=== PATIENT | female | born 1975 | race Two or more races ===

== ENCOUNTER 2023-02-17 09:25 | Outpatient (AMB) | payer MEDICARE, MEDICAID, SELFPAY ==
--- NOTE | 2023-02-17 09:28 | A.OFFVIS_ITS ---
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 Accompanied by: Self / Same As Patient Allergies Sulfa (Sulfonamide Antibiotics) Allergy (Unknown, Verified 02/17/23 09:33) Unknown Medication List - Last Reconciled 02/17/23 by Shaye Perrin RN ciclopirox 0.77% 1 appl topical BID docusate sodium (Colace) 100 mg PO BID ergocalciferol (vitamin D2) 50,000 units PO .weekly ferrous sulfate 325 mg PO DAILY ibuprofen 800 mg PO BID lorazepam (Ativan) 1 mg PO BID omeprazole 20 mg PO DAILY tramadol 50 mg PO BID PRN zinc gluconate 30 mg PO DAILY zolpidem ER 12.5 mg PO BEDTIME PRN HPI HPI Comments History of Present Illness Details Patient presents for evaluation of multiple joint pains. She says she has been treated for fibromyalgia for the last 6-10 years. She was on regular doses of tramadol, 50 b.i.d. from her primary doctor. He apparently left practice and she is searching for a doctor to continue that regimen. The primary provider she had seen at [place] told that her that he did not have the license to prescribe that medication. Patient complains of lower back pain more on the left. This tends to radiate to the left buttock and down to the thigh. It has been worse in the last 6-12 months. It is worse with more physical activity. It also occasionally bothers her at night. She has had at gastric surgery for obesity but still takes ibuprofen once or twice a day if needed. She often takes it with the tramadol. She did not find Tylenol all that effective. She has a history of iron deficiency anemia, currently on ferrous sulfate daily. She also takes omeprazole for heartburn and Ambien for sleep at night if needed. She has tried Lyrica but it made her gain weight. Gabapentin seem to make her nauseated. She had been on antidepressants in the past but not recently. She tried cyclobenzaprine and that did not help. She had some injections in the back years ago that were not all that helpful. She has not seen the Pain Management people recently. She said she felt they treated her like a drug addict. [facility] Medical History (Updated 02/17/23 @ 10:15 by Ortiz Schofield MD) Allergic rhinitis Anxiety Bipolar 1 disorder Chronic back pain Depression GERD (gastroesophageal reflux disease) Insomnia Intestinal malabsorption following gastrectomy Obesity (BMI 30-39.9) Vitamin B12 deficiency Surgical History H/O reduction mammoplasty History of abdominoplasty History of cholecystectomy History of sleeve gastrectomy Hx of appendectomy Family History (Updated 02/17/23 @ 09:41 by Shaye Perrin RN) Mother Diabetes Hypertension Kidney stones Chronic pain Maternal Grandmother Diabetes Hypertension Social History (Updated 02/17/23 @ 09:41 by Shaye Perrin RN) Household Members: Children Alcohol intake: never Patient Tobacco Use Status: Never used Tobacco Review of Systems Const Details: Low energy. Some weight loss with the gastric surgery but some of that has returned. Negative for appetite change, fever, chills, malaise Eyes Details: Occasional headache. Negative for vision change, dry eyes, and dizziness ENT Details: Some oral dryness. Negative for hearing change, tinnitus, oral ulcer, nose bleeds Card Details: Occasional ankle swelling. Negative chest pain, palpitations and syncope Resp Details: Negative for SOB, cough and wheezing GI Details: Negative indigestion/heartburn, nausea, abdominal pain, bowel changes, diarrhea, constipation and bloody stool. Details: Negative for dysuria, hematuria, nocturia, decreased force/flow and genital discharge Skin/Breast Details: Negative for itching, rash, hives, Raynaud's symptoms, sun sensitivity, and skin cancer Neuro Details: Negative for epilepsy, palsy, stroke, changes in speech, tingling and weakness Psych Details: History of anxiety and depression in the past but denies significant depression currently. The Endo Details: Negative for polyuria and polydypsia Jeremiah/Lymph Details: Negative for excessive bruising or bleeding. Physical Exam Vital Signs: Last Vital Signs Temp 97.6 F 02/17/23 09:29 Pulse 102 H 02/17/23 09:29 Resp 16 02/17/23 09:29 BP 110/72 02/17/23 09:29 Pulse Ox 99 02/17/23 09:29 Oxygen Delivery Method Room Air 02/17/23 09:29 BMI result Body Mass Index 33.3 APPEARANCE: Patient in no acute distress EYES no redness, pupils equal and reactive to light, eyelids normal EARS: External ear normal, canal clear and tympanic membrane normal. NOSE/SINUS: Airflow through both nares, no nasal discharge, no bleeding THROAT: Oral mucosa moist, no ulcerations NECK: No thyromegaly or masses, no adenopathy, trachea midline. HEART: Regulrar rhythm, S1-S2 heard, no murmurs, rubs or gallops. LUNG: Clear to percussion and auscultation ABD: Normal bowel sounds, no organomegaly, masses or tenderness. EXTREMITIES: No edema, no calf tenderness, normal peripheral pulses. NEURO: Oriented and alert x3. No focal weakness. Reflexes symmetric. Gait normal. SKIN: No inflammatory or neoplastic lesions. Normal color and turgor JOINT EXAM:.?? Cervical Spine:.? Full range of motion without pain; mild cervical muscle tenderness. Thoracic Spine:.? No scoliosis.? No tenderness on palpation. Lumbar Spine:.? Alignment normal.? Full range of motion without pain, no tenderness. Chest Wall:.? No tenderness, swelling, increased warmth or erythema. Hands:.? Normal pain-free range of motion without tenderness, swelling, increased warmth or erythema. 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 Wrists:.? Normal pain-free range of motion without tenderness, swelling, increased warmth or erythema. Elbows:. Normal pain-free range of motion without tenderness, swelling, increased warmth or erythema. Shoulders:.?? Full range of motion with mild discomfort at the extremes of motion. There is some trapezial muscle tenderness but no abductor weakness, adenopathy, weakness, swelling, increased warmth or erythema. Hips:.? Full range of motion that causes lumbar pain. This is more prominent on the left. No tenderness. Hip bursa:.? Mild trochanteric tenderness. Knees:.?? Normal pain-free range of motion without tenderness, swelling, increased warmth or erythema.? There is no effusion or crepitation Ankles:.? Normal pain-free range of motion without tenderness, swelling, increased warmth or erythema. Feet:.? Normal pain-free range of motion without tenderness, swelling, increased warmth or erythema. Tender points:.? mild tenderness to digital palpation at the trapezius, , knees, greater trochanter area bilaterally. ? Assessment & Plan Assessment & Plan (1) Iron deficiency anemia: Code(s): D50.9 - Iron deficiency anemia, unspecified (2) History of sleeve gastrectomy: Code(s): Z90.3 - Acquired absence of stomach [part of] (3) Fibromyalgia: Code(s): M79.7 - Fibromyalgia (4) Low back pain: Code(s): M54.50 - Low back pain, unspecified Plan Patient has a longstanding history of many areas of pain. It seems recently, in the last 6-12 months it has been worse for her with the back pain radiating down the left leg. This would suggest lumbar degenerative disease and secondary sciatica. She may have fibromyalgia but I think is clearly the back pain that is limiting her at this point. Further treatment of her iron deficiency may also improve some of her musculoskeletal symptoms. I told her I would not be prescribing her tramadol. Tramadol and such opioids in the setting of chronic pain and fibromyalgia are not all that helpful. Low-dose nighttime use if needed could be instituted and monitored by her primary doctor. Additionally a restart of her antidepressant may also be helpful in helping her cope with the pain. I do not think she needs rheumatology follow-up at this point. I will commence workup of the back pain with LS spine films, sed rate and CRP. I suggested she could follow through with a new pain management team and I referred her to the office here at [place]. Orders: Orders XR lumbar spine 2-3V Today M54.50 - Low back pain, unspecified C Reactive Protein Today M54.50 - Low back pain, unspecified, M79.7 - Fibromyalgia Erythrocyte Sedimentation Rate Today M54.50 - Low back pain, unspecified, M79.7 - Fibromyalgia Referrals Pain Management Referral M54.50 - Low back pain, unspecified Coding Level of Care Code New Pt Level 3 (31177) Diagnoses Iron deficiency anemia D50.9 History of sleeve gastrectomy Z90.3 Fibromyalgia M79.7 Low back pain M54.50
[2023-02-17 09:29] VITALS: BP 110/72; PULSE 102; RESP 16; TEMP 36.4; O2SAT 99; BMI 33.3
== END 2023-02-17 10:29 | disposition home or self-care (01) ==
PROVIDERS: PCP Internal Medicine; Visit Provider Internal Medicine Rheumatology
DX: D50.9 Iron deficiency anemia, unspecified (principal); Z90.3 Acquired absence of stomach [part of]; M79.7 Fibromyalgia; M54.50 Low back pain, unspecified
CPT/HCPCS: 99203

== ENCOUNTER 2023-02-17 09:28 | Outpatient (REF) | payer MEDICARE, MEDICAID, SELFPAY ==
--- NOTE | ~2023-02-17 | XR_ITS ---
EXAMINATION: XR LUMBOSACRAL SPINE CLINICAL INFORMATION: Low back pain. COMPARISON: None available. TECHNIQUE: Three views of the lumbosacral spine. FINDINGS: There are 5 nonrib-bearing lumbar vertebrae. Vestigial ribs are seen at L1. Disc spaces are maintained. Pedicles intact. No acute fracture, spondylolisthesis, or spondylolysis is identified. Sacroiliac joints unremarkable. Patient status post epigastric surgery. XR/XR lumbar spine 2-3V IMPRESSION: No significant lumbar spine abnormality appreciated.
== END 2023-02-17 09:29 | disposition home or self-care (01) ==
LOC: HO.XRAY 09:28
PROVIDERS: PCP Internal Medicine; Visit Provider Internal Medicine Rheumatology
DX: M54.50 Low back pain, unspecified (principal); M79.7 Fibromyalgia
CPT/HCPCS: 36415; 72100; 85652; 86140; 99202

== ENCOUNTER 2023-02-17 10:24 | Outpatient (REF) | payer MEDICARE, OTHER, SELFPAY ==
[2023-02-17 11:29] LABS: Erythrocyte Sedimentation Rate 12 MM/HR (0-20)
[2023-02-17 14:03] LABS: C Reactive Protein 0.29 mg/dL (< or = 0.50)
== END 2023-02-17 10:25 | disposition home or self-care (01) ==
LOC: HO.10HDL 10:24
PROVIDERS: Visit Provider Internal Medicine Rheumatology
DX: Z13.89 Encounter for screening for other disorder (principal)
CPT/HCPCS: 36415; 85652; 86140